=== PATIENT | female | born 1995 | race Caucasian/White ===

== ENCOUNTER 2023-12-30 22:37 | Emergency (ER) | payer SELFPAY ==
[2023-12-30 22:47] VITALS: BP 130/80
== END 2023-12-31 04:34 ==
LOC: EMR 22:37
PROVIDERS: EMERGENCY PHYSICIAN Emergency Medicine
DX: J02.9 Acute pharyngitis, unspecified (principal); Z53.21 Procedure and treatment not carried out due to patient leaving prior to being seen by health care provider
CPT/HCPCS: 87070; 87880

== ENCOUNTER 2024-10-08 11:47 | Emergency (ER) | payer OTHER, SELFPAY ==
[2024-10-08 11:51] VITALS: BP 138/94
[2024-10-08 12:28] LABS: HCG, Serum Qualitative Screen Negative
[2024-10-08 12:30] LABS: ALT (SGPT) 190 U/L (0-35); AST (SGOT) 89 U/L (14-36); Albumin 4.5 g/dl (3.5-5.0); Alkaline Phosphatase 205 U/L (38-126); Blood Urea Nitrogen 12 mg/dl (7-17); Calcium 9.3 mg/dl (8.4-10.2); Carbon Dioxide 25 mmol/L (22-30); Chloride 104 mmol/L (98-107); Glucose 98 mg/dl (70-99); Lipase 119 U/L (23-300); Potassium 4.3 mmol/L (3.5-5.1); Sodium 139 mmol/L (135-145); Total Bilirubin 0.4 mg/dl (0.2-1.3); Total Protein 7.9 g/dl (6.3-8.2); eGFR > 60.00
[2024-10-08 12:42] LABS: Hematocrit 45.7 % (37.0-47.0); Hemoglobin 15.1 g/dL (12.0-16.0); Mean Corpuscular Hgb 27.9 pg (27.0-31.0); Mean Corpuscular Volume 84.5 fL (81.0-99.0); Platelet Count 172 10^3/uL (130-400); Red Blood Cell Count 5.41 10^6/uL (4.20-5.40); White Blood Cell Count 13.3 10^3/uL (4.8-10.8)
[2024-10-08 12:44] LABS: Absolute Neutrophils -Man Diff 4.3 10^3/uL (1.4-6.5); Atypical Lymphocytes 31 %; Band Neutrophils 0 % (0-3); Lymphocytes 32 % (20-51); Monocytes 4 % (2-9); Normal RBC Morphology Yes; Platelets Checked Yes; Segmented Neutrophils 33 % (42-75)
[2024-10-08 12:45] LABS: Total Cells Counted 100
--- NOTE | 2024-10-08 12:56 | ED.GENMED ---
History of Present Illness
<JACE Dhillon - Last Filed: 10/11/24 17:52>
General
Chief Complaint: Abdominal Symptoms
Source: patient
Exam Limitations: none
Time Seen by Provider: 10/08/24 12:43
Nursing documentation reviewed up to this point in time: agreed with
History of Present Illness
History of Present Illness:
Patient is a 28-year female who presents to the ER complaining of nausea and vomiting. She started with feeling very nauseous September 28. She was little constipated at time. She went to urgent care September 30. They did call her several days after
stating that she had a urinary tract infection and she was started on Macrobid October 05. She denies any urinary frequency urgency or dysuria. She reports since taking the medicine she thinks the nausea and vomiting is gotten worse. She vomits
several times a day.
She did take Zofran around 1030 this morning
She is on Wegovy and started that 3 months ago for weight loss. She has had symptoms however prior to recent increased dose 2 wks ago.
Past History
<JACE Dhillon - Last Filed: 10/11/24 17:52>
Past History
ED Past Medical History: Other (Migraine) and Other (PCOS)
ED Past Surgical History: None
Social History
Tobacco: Non-smoker
Personal: Single
Living: with family
Review of Systems
<JACE Dhillon - Last Filed: 10/11/24 17:52>
Review of Systems
Allergies reviewed?: Yes
All Other Systems: ROS reviewed and negative except as documented in HPI and ROS
Constitutional: Denies fever, fatigue or chills
Respiratory: Reports no symptoms
Cardiac: Reports no symptoms
ABD/GI: Reports nausea and vomiting; Denies abdominal pain or diarrhea
: Reports no symptoms
Musculoskeletal: Reports no symptoms
Skin: Reports no symptoms
Neurological: Reports no symptoms
Psychiatric: Reports no symptoms
Phy Exam
<JACE Dhillon - Last Filed: 10/11/24 17:52>
General Physical Exam
General Presentation: no apparent distress
General age: appears stated age
General Skin: warm and dry
General Habitus: normal
General Mental: alert
General Hydration: appears well hydrated
Gastrointestinal Exam
Gastrointestinal Exam: normal bowel sounds, non tender and soft
Neurological Exam
Neurological Exam: alert and oriented x3
Musculoskeletal Exam
Musculoskeletal Exam: full ROM
Skin Exam
Skin Exam: normal color and warm/dry
Psychiatric Exam
Psychiatric Exam: normal mood/affect
Course
<JACE Dhillon - Last Filed: 10/11/24 17:52>
Orders/Labs/Results
Orders:
Orders
10/08/24 11:57
Test Result ONCE
10/08/24 12:03
Complete Blood Count/With Diff Urgent
Comprehensive Metabolic Panel Urgent
HCG, Serum Qualitative Screen Urgent
Comment: Notify provider if positive test present
Lipase Urgent
Manual Differential Urgent
10/08/24 13:03
US Abdomen Complete/Upper Urgent
Comment:
Reason For Exam: nausea /elevated lfts
10/08/24 13:04
0.9% Sodium Chloride 1000 ml [Nss] 1,000 ml IV BOLUS
Ondansetron Injectable [Zofran] 4 mg IV NOW STA
10/08/24 14:24
Urinalysis Reflex To Culture Urgent
Date Specimen was Collected: 10/08/24
Time Specimen was Collected: 14:19
Urine Microscopic Reflex Cult Urgent
Urine Culture Urgent
DEMIAN Source: U
Specimen Description:
Date Specimen was Collected: 10/08/24
Time Specimen was Collected: 14:19
Abnormal Lab Results
10/08/24 10/08/24
12:03 14:24
WBC 13.3 H 10^3/uL
(4.8-10.8)
RBC 5.41 H 10^6/uL
(4.20-5.40)
Segmented Neutrophils 33 L %
(42-75)
AST 89 H U/L
(14-36)
ALT 190 H U/L
(0-35)
Alkaline Phosphatase 205 H U/L
(38-126)
Urine Ketones 3+ A
(Negative)
Leukocyte Esterase Rfl 1+ A
(Negative)
Urine Bacteria (Reflex) Many A
(Negative)
Urine Albumin (Reflex) 2+ A
(Neg - Trace)
10/08/24 12:03
10/08/24 12:03
Vital Signs
Initial and Last Documented VS:
Initial Vital Signs
Temp Pulse Resp BP Pulse Ox
98.7 F 122 18 138/94 100
10/08/24 11:51 10/08/24 11:51 10/08/24 11:51 10/08/24 11:51 10/08/24 11:51
Last Documented Vital Signs
Temp Pulse Resp BP Pulse Ox
98.7 F 73 18 108/68 98
10/08/24 11:51 10/08/24 16:39 10/08/24 11:51 10/08/24 15:00 10/08/24 15:00
Executive Sous Chef consulted with Physician
Executive Sous Chef consulted with physician?: Yes
Name of Physician Consulted: Morro
<Brandan Hooker, DO - Last Filed: 10/08/24 16:25>
Orders/Labs/Results
Orders:
Orders
10/08/24 11:57
Test Result ONCE
10/08/24 12:03
Complete Blood Count/With Diff Urgent
Comprehensive Metabolic Panel Urgent
HCG, Serum Qualitative Screen Urgent
Comment: Notify provider if positive test present
Lipase Urgent
Manual Differential Urgent
10/08/24 13:03
US Abdomen Complete/Upper Urgent
Comment:
Reason For Exam: nausea /elevated lfts
10/08/24 13:04
0.9% Sodium Chloride 1000 ml [Nss] 1,000 ml IV BOLUS
Ondansetron Injectable [Zofran] 4 mg IV NOW STA
10/08/24 14:24
Urinalysis Reflex To Culture Urgent
Date Specimen was Collected: 10/08/24
Time Specimen was Collected: 14:19
Urine Microscopic Reflex Cult Urgent
Urine Culture Urgent
DEMIAN Source: U
Specimen Description:
Date Specimen was Collected: 10/08/24
Time Specimen was Collected: 14:19
Abnormal Lab Results
10/08/24 10/08/24
12:03 14:24
WBC 13.3 H 10^3/uL
(4.8-10.8)
RBC 5.41 H 10^6/uL
(4.20-5.40)
Segmented Neutrophils 33 L %
(42-75)
AST 89 H U/L
(14-36)
ALT 190 H U/L
(0-35)
Alkaline Phosphatase 205 H U/L
(38-126)
Urine Ketones 3+ A
(Negative)
Leukocyte Esterase Rfl 1+ A
(Negative)
Urine Bacteria (Reflex) Many A
(Negative)
Urine Albumin (Reflex) 2+ A
(Neg - Trace)
10/08/24 12:03
10/08/24 12:03
Vital Signs
Initial and Last Documented VS:
Initial Vital Signs
Temp Pulse Resp BP Pulse Ox
98.7 F 122 18 138/94 100
10/08/24 11:51 10/08/24 11:51 10/08/24 11:51 10/08/24 11:51 10/08/24 11:51
Last Documented Vital Signs
Temp Pulse Resp BP Pulse Ox
98.7 F 73 18 108/68 98
10/08/24 11:51 10/08/24 16:39 10/08/24 11:51 10/08/24 15:00 10/08/24 15:00
<JACE Dhillon - Last Filed: 10/11/24 17:52>
MDM/Problems Addressed
MDM/Problems Addressed:
Patient is a 28 female who presented for nausea/vomiting .
She started with nausea intermittent vomiting since ( Her Wegovy dose was not increased until after nausea and vomiting started)
she went to urgent care was started on Macrobid for urine infection on October 05 . She denies urinary symptoms. She denies any fevers she denies any actual abdominal pain. Her primary complaint is nausea and intermittent vomiting. Despite
the nausea she is able drink fluids she is afebrile. Her white count is minimally elevated her hemoglobin is stable her LFTs are elevated abdomen soft and nontender.
With elevated lfts and minimally elevated wbc will check US.
Pt ordered fluids and zofran
CAre of pt at this time transferred to DR Hooker
<JACE Dhillon - Last Filed: 10/11/24 17:52>
*Radiology
Radiology exam reviewed: radiology read reviewed
*Pulse Oximetry
Patient hypoxic: no
*Critical Care Note
Total Time (30-74mins, 75-104mins- exclusive of procedures): Not Applicable
ED Attending Note
<JACE Dhillon - Last Filed: 10/11/24 17:52>
-
Portions of this chart may have been created with voice recognition software.� Occasional wrong word or��sound alike� substitutions may have occurred due to the inherent limitations of voice recognition software.
<Brandan Quezada Morro, - Last Filed: 10/08/24 16:25>
ED Attending Note
Patient seen and examined by attending physician: Yes
I performed the substantive portion of visit, reviewed & personally made and approve the management plan that is documented in note by myself or DIRK.: Yes
ED Attending Note:
I evaluated the patient at bedside. The patient has been on antibiotics but it appears that the nausea and vomiting started before antibiotic use. White count is elevated and transaminases are somewhat elevated as well. However ultrasound imaging
unremarkable. I did notify GI front office to arrange close outpatient follow-up. She already has Zofran at home.
Discharge Plan
Departure
Patient Disposition: Home (Routine Discharge)
Date of Disposition: 10/08/24
Time of Disposition: 16:22
Patient with high blood pressure during this ER visit?: Yes
Discharge Problem:
Nausea & vomiting
Instructions: BLOOD PRESSURE
Prescriptions:
No Action
cephalexin 500 MG capsule
500 mg PO QID Qty: 39 0RF
brplblsrdf-edlaqcicwgowd-isdf [Fioricet] 50-300-40 mg capsule
1 cap PO Q8H PRN (Reason: Headache) Qty: 14 0RF
Referrals:
Elmer Pinto MD [Active] - Next open appointment
Natalie James PA-C [Family Provider] -
Activity Restrictions/Additional Instructions:
White count is high at 13.3. AST is 89 and ALT is 190. Alkaline phosphatase is 205. However the total bilirubin level is normal. Pancreas numbers normal. test is negative. The upper abdominal ultrasound shows no abnormality. I
recommend that you follow-up with GI and I did send them your info to call you.
Interventions
Interventions:
*Risk Screen - Suicide Last Done: 10/08/24 11:53
*Neglect/Abuse Screening Last Done: 10/08/24 11:53
*Nursing Disposition Last Done: 10/08/24 16:39
ZH-Clewxu-Kwrbswrohg Assessment Last Done: 10/08/24 13:13
Discharge Date and Time
Discharge Date/Time: 10/08/24 16:40
Print Language: CANADIAN
[2024-10-08] MEDS: NSS 1000 IV (13:09)
[2024-10-08] MEDS: ZOFRAN 4 MG IV (13:10)
[2024-10-08 13:13] VITALS: BMI 44.8
[2024-10-08 14:25] VITALS: BP 120/70
[2024-10-08 15:00] VITALS: BP 108/68
[2024-10-08 15:32] LABS: Urine Albumin 2+ (Neg - Trace); Urine Bilirubin Negative (Negative); Urine Character Clear (Clear); Urine Color Yellow; Urine Glucose Negative (Negative); Urine Ketone 3+ (Negative); Urine Leukocyte 1+ (Negative); Urine Nitrite Negative (Negative); Urine Occult Blood Negative (Negative); Urine Urobilinogen 1+ (Neg - 1+); Urine pH 6.5 (5.0-9.0)
[2024-10-08 16:20] LABS: Urine Mucus Many
[2024-10-08 16:21] LABS: Urine Bacteria Many (Negative); Urine Red Blood Cell 0-2 /HPF (0-2); Urine Squamous Cell 16-20 /LPF (Few)
== END 2024-10-08 16:40 | disposition home or self-care (01) ==
LOC: EMR 11:47
PROVIDERS: Nurse Practitioner; Student in an Organized Health Care Education/Training Program; EMERGENCY PHYSICIAN Emergency Medicine; FAMILY PHYSICIAN Physician Assistant
DX: R11.2 Nausea with vomiting, unspecified (principal); K59.00 Constipation, unspecified
CPT/HCPCS: 99284; 96374; 96361; 76700; 80053; 81003; 81015; 83690; 84703; 85025; 87086

== ENCOUNTER → 2024-12-01 03:41 | Emergency (ER) | payer OTHER, SELFPAY ==
[2024-12-01 03:42] VITALS: BP 140/82
[2024-12-01 05:34] LABS: % Basophils 0.7 % (0-2); % Eosinophils 2.1 % (0-6); % Immature Granulocytes 0.4 % (0-0.5); % Lymphocytes 31.3 % (20.5-51.1); % Monocytes 8.8 % (1.7-9.3); % Neutrophils 56.7 % (42.2-75.2); Absolute Basophils 0.1 10^3/uL (0-0.2); Absolute Eosinophils 0.2 10^3/uL (0-0.7); Absolute Lymphocytes 2.9 10^3/uL (1.2-3.4); Absolute Monocytes 0.8 10^3/uL (0.1-0.6); Absolute Neutrophils 5.2 10^3/uL (1.4-6.5); Hematocrit 39.5 % (37.0-47.0); Hemoglobin 13.1 g/dL (12.0-16.0); Mean Corp Hgb Conc. 33.2 g/dL (33.0-37.0); Mean Corpuscular Hgb 28.4 pg (27.0-31.0); Mean Corpuscular Volume 85.5 fL (81.0-99.0); Mean Platelet Volume 8.9 fL (7.4-10.4); Nucleated Red Blood Cells % 0 %; Platelet Count 214 10^3/uL (130-400); Red Blood Cell Count 4.62 10^6/uL (4.20-5.40); Red Cell Dist. Width 13.5 % (11.5-14.5); White Blood Cell Count 9.2 10^3/uL (4.8-10.8)
[2024-12-01 05:48] LABS: HCG, Serum Qualitative Screen Negative
[2024-12-01 05:58] LABS: ALT (SGPT) 20 U/L (0-35); AST (SGOT) 23 U/L (14-36); Albumin 4.4 g/dl (3.5-5.0); Alkaline Phosphatase 78 U/L (38-126); Blood Urea Nitrogen 16 mg/dl (7-17); Calcium 8.9 mg/dl (8.4-10.2); Carbon Dioxide 26 mmol/L (22-30); Chloride 106 mmol/L (98-107); Glucose 103 mg/dl (70-99); Potassium 4.3 mmol/L (3.5-5.1); Sodium 139 mmol/L (135-145); Total Bilirubin 0.5 mg/dl (0.2-1.3); Total Protein 6.9 g/dl (6.3-8.2); eGFR > 60.00
--- NOTE | 2024-12-01 06:02 | ED.GENMED ---
History of Present Illness
General
Chief Complaint: Chest Pain
Source: patient
Exam Limitations: none
Time Seen by Provider: 12/01/24 06:01
History of Present Illness
History of Present Illness:
29-year-old female with 9 days of left-sided upper back upper chest pain. Worse with twisting turning coughing. No shortness of breath no hemoptysis no nausea or vomiting no fever or chills. Minimal symptoms at rest but clearly worse with
twisting turning and coughing no leg pain or leg swelling.
Past History
Past History
ED Past Medical History: Other (Migraine) and Other (PCOS)
ED Past Surgical History: None
Social History
Tobacco: Non-smoker
Personal: Single
Living: with family
Review of Systems
Review of Systems
All Other Systems: Not applicable
Constitutional: Denies fever
Respiratory: Denies hemoptysis
ABD/GI: Reports no symptoms
Phy Exam
Physical Exam
Physical Exam:
GENERAL: Alert and oriented in no apparent distress
EYE: Orbits normal.
NECK: Supple
CARDIAC: Regular rate and rhythm without any obvious murmurs.
LUNGS: Clear breath sounds,normal. No obvious chest wall tenderness but increasing pain with twisting and turning
ABDOMEN: Soft, without focal tenderness or distention
NEUROLOGICAL: Alert and oriented , grossly non-focal
SKIN: Warm and dry, no rash or lesion, no discoloration, skin intact.
MUSCULOSKELETAL: No edema,no deformity.Good color
PSYCH: Normal and appropriate interaction.
Scores
Heart Score for Chest Pain Patients
STEMI patient?: No
History: Slightly or Non-Suspicious
ECG: Normal
Age: </= 45 years
Risk Factors: 1 or 2 Risk Factors
Troponin: </= Normal Limit
Heart Score for Chest Pain Patients: 1
Heart Score Risk: 2.5% MACE over next 6 weeks
Course
Orders/Labs/Results
Orders:
Orders
12/01/24 03:46
Electrocardiogram (*1) Urgent
Reason for Study: Chest Pain
EKG- Treatment ONCE
Test Result ONCE
Chest [CR Chest - 2 Views ] Urgent
Comment:
Reason For Exam: CHEST PAIN
12/01/24 05:26
Complete Blood Count/With Diff Urgent
Comprehensive Metabolic Panel Urgent
HCG, Serum Qualitative Screen Urgent
Troponin I Urgent
12/01/24 06:10
Ketorolac [Toradol] 15 mg IV NOW STA
12/01/24 06:33
D-Dimer Urgent
12/01/24 07:27
CT Chest PE Study Urgent
Comment:
Reason For Exam: cp/pos dimer
Abnormal Lab Results
12/01/24 12/01/24
: 06:33
Absolute Monos (auto) 0.8 H 10^3/uL
(0.1-0.6)
D-Dimer 0.80 H ug/mlFEU
(0.00-0.50)
Glucose 103 H mg/dl
(70-99)
12/01/24 05:26
12/01/24 05:26
Vital Signs
Initial and Last Documented VS:
Initial Vital Signs
Temp Pulse Resp BP Pulse Ox
98.2 F 84 20 140/82 100
12/01/24 03:42 12/01/24 03:42 12/01/24 03:42 12/01/24 03:42 12/01/24 03:42
Last Documented Vital Signs
Temp Pulse Resp BP Pulse Ox
98.2 F 84 20 140/82 96
12/01/24 03:42 12/01/24 03:42 12/01/24 03:42 12/01/24 03:42 12/01/24 06:41
MDM/Problems Addressed
Differential Diagnosis Includes:
Very atypical symptoms for primary cardiac issue. Differential would include pericarditis pleurisy pulmonary emboli musculoskeletal. Clinically stable and nontoxic. No reason for repeat troponin testing with 9 days of symptoms with a very
atypical symptoms. Will do a D-dimer as a low suspicion pulmonary emboli. Dose of Toradol.
*Radiology
Radiology exam reviewed: preliminary read by ED provider (Negative) and radiology read reviewed (Negative chest x-ray. Negative pulmonary emboli study)
*Pulse Oximetry
Patient hypoxic: no
*EKG
Interpreted by ED Provider?: Yes
Interpretation: normal
Comparison EKG: no comparison EKG present
Heart Rate: 73
Rate: normal
Rhythm: sinus
[place]: normal axis
Interval: normal interval
QRS Pattern: normal QRS
Ischemia: no ischemia
*Critical Care Note
Total Time (30-74mins, 75-104mins- exclusive of procedures): Not Applicable
Data Reviewed
Review of Other/Old Records Reveals: Labs, Records and Testing
Update Note
Update Note:
Patient medically stable and nontoxic. Medically consistent with musculoskeletal pain. No serious etiology found. Symptomatic treatment and follow-up
ED Attending Note
-
Portions of this chart may have been created with voice recognition software.� Occasional wrong word or��sound alike� substitutions may have occurred due to the inherent limitations of voice recognition software.
Discharge Plan
Departure
Patient Disposition: Home (Routine Discharge)
Date of Disposition: 12/01/24
Time of Disposition: 08:59
Patient with high blood pressure during this ER visit?: Yes
Discharge Problem:
Chest pain
Instructions: Chest Pain That Is Not Caused by the Heart (DC), BLOOD PRESSURE
Prescriptions:
No Action
cephalexin 500 MG capsule
500 mg PO QID Qty: 39 0RF
hkirsqsbdw-uijieveffikil-heku [Fioricet] 50-300-40 mg capsule
1 cap PO Q8H PRN (Reason: Headache) Qty: 14 0RF
Referrals:
Natalie James PA-C [Family Provider] - Follow up in 2-3 days
Interventions
Interventions:
*Risk Screen - Suicide Last Done: 12/01/24 03:42
*Neglect/Abuse Screening Last Done: 12/01/24 03:42
*ED- Fall Risk Assessment Last Done: 12/01/24 05:41
*ED COVID-19 Vaccine History Last Done: 12/01/24 05:41
ED- Cardiac Assessment Last Done: 12/01/24 06:41
Discharge Date and Time
Print Language: SERBIAN
[2024-12-01 06:09] LABS: Troponin I < 0.012 ng/ml
[2024-12-01] MEDS: TORADOL 15 MG IV (06:34)
[2024-12-01 08:00] VITALS: BP 108/68
== END | disposition home or self-care (01) ==
LOC: EMR 03:41
PROVIDERS: Student in an Organized Health Care Education/Training Program; EMERGENCY PHYSICIAN Emergency Medicine; FAMILY PHYSICIAN Physician Assistant
DX: R07.89 Other chest pain (principal); E28.2 Polycystic ovarian syndrome
CPT/HCPCS: 99284; 96374; 71046; 71275; 80053; 84484; 84703; 85025; 85379; 93005; Q9967